=== PATIENT | female | born 1990 | race American Indian/Alaskan Native ===

== ENCOUNTER 2017-08-25 00:12 | Emergency (ER) | payer SELFPAY ==
[2017-08-25 01:47] VITALS: BP 119/88
[2017-08-25] MEDS ORDERED: KEFLEX PO ONE (07:59)
[2017-08-25] MEDS ORDERED: MOTRIN PO ONE (07:59)
[2017-08-25] MEDS ORDERED: BOOSTRIX IM ONE (07:59)
--- NOTE | 2017-08-25 08:00 | Emergency Department Report ---
Abscess Boil HPI - HPI Chief Complaint: Skin/Abscess/Foreign Body Stated Complaint: ABSCESS BEHIND LT EAR Time Seen by Provider: 08/25/17 07:30 Duration: 1 Week Location: Neck Severity: Moderate History: Yes Pain (left posterior neck pain 10/10 and feels sore.), No Fever, No Purulent Drainage, No Numbness, No Foreign Body, No Previous History, No Insect Bite HPI: This is a 26-year-old female here reported that she has a boil to the back of her neck 1 week. She said pain is 10 out of 10 and feels sore. Worse with touch and no alleviating factor. Tetanus vaccine is not up-to-date. Unknown cause. Denies any fever or chills. Denies any nausea or vomiting. Denies any neck pain or stiffness. Denies any headache. No previous incident. She says she try to keep it clean with peroxide. Denies taking any medication for pain. Home Medications: Previous Rx's Medication Instructions Recorded Last Taken Type Cephalexin [Keflex] 500 mg PO Q8HR 10 Days #30 cap 08/25/17 Unknown Rx Ibuprofen [Motrin] 600 mg PO Q8H PRN #15 tablet 08/25/17 Unknown Rx Allergies/Adverse Reactions: Allergies Allergy/AdvReac Type Severity Reaction Status Date / Time Sulfa (Sulfonamide Allergy Itching Verified 08/25/17 03:03 Antibiotics) ED Review of Systems ROS: Stated complaint: ABSCESS BEHIND LT EAR Other details as noted in HPI Constitutional: denies: chills, fever Eyes: eye pain ENT: denies: throat pain Respiratory: denies: cough, shortness of breath, SOB with exertion, SOB at rest , wheezing Cardiovascular: denies: chest pain, palpitations, edema, syncope Gastrointestinal: denies: nausea, vomiting Genitourinary: denies: urgency, dysuria, discharge Musculoskeletal: denies: back pain, arthralgia Skin: other (boil to the left neck posteriorly). 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 No distress. Alert and acting appropriately. This is a 26-year-old female well-nourished well-developed in no acute distress Front/Back of Body, Lg (Color): 1 - Patient with quarter size, round, indurated with minimal fluctuant area to left posterior neck. Tender to palpate with erythema. No drainage noted. An tetanus vaccine is not up-to-date Size: 1 cm Exam: Yes Tenderness (left posterior neck), Yes Fluctuance (minimal fluctuance, mostly indurated), Yes Surrounding Cellulites/Erythema, Yes Normal Neurologic Exam (alert and oriented 3, normal gait, speech is clear, GCS of 15.), Yes Normal Circulation (no clubbing, cyanosis or edema to extremities. +2 pulses to all extremities), No Lymphangitis, No Crepitation, No Heart Murmur (S1, S2. Regular rate and rhythm) Exam: Lungs: Clear to auscultate bilaterally, no rhonchi wheezes or rales. Mouth: Normal mucosa, no pharyngeal erythema. Neck: No C-spine tenderness. Full range of motion except for tenderness localized to abscess site. I & D Note - I & D Note I & D Note: Simple abscess: Under sterile procedure, quarter size round abscess to left posterior neck tenderness with iodine, normal saline. 0.5 mL of 1% lidocaine instilled in the area prior to procedure. #11 blade used to make a small incision to abscess site. Expressed moderate amount of pus from site. Still with some induration. Area cleansed and iodoform pack in place followed by dry sterile dressing. Tetanus vaccine updated and patient knows to return in 3 days for packing removal. She tolerated procedure well. ED Course Vital Signs 08/25/17 08/25/17 01:38 03:07 Temperature 98.4 F 98.4 F Pulse Rate 82 83 Respiratory 18 18 Rate Blood Pressure 119/88 119/88 O2 Sat by Pulse 99 99 Oximetry - Reevaluation(s) Reevaluation #1: 08/25/17 08:35 Patient given Motrin 800 mg by mouth for pain, strict 0.5 mL to update tetanus and Keflex 500 mg for cellulitis of abscess. Pain is controlled and she had no adverse reaction to medication Critical care attestation.: If time is entered above; I have spent that time in minutes in the direct care of this critically ill patient, excluding procedure time. ED Medical Decision Making - Medical Decision Making ED course: The 26-year-old patient here reports that she has both the back of her neck on the left side for one week. She said it is red and sore. Tetanus vaccine is up -to-date. She is here to be evaluated. I saw and examined patient and she was found to have quarter size, indurated, minimal fluctuance, cellulitic area to posterior left neck that is tender to palpate. No drainage noted. Please refer to procedure note for details on incision and drainage of abscess. Patient to return in 3 days to have packing removed. She tolerated procedure well. Pain controlled with Motrin. I discussed diagnosis with patient and she voiced understanding. A/P 1: Cellulitis, left posterior neck-patient started on Keflex 500 mg by mouth 1 given in ER and will discharge home and Keflex. 2: Encounter for incision and drainage of abscess to left posterior neck- abscess drained under sterile procedure please refer to procedure note for detail on procedure. Patient to return in 3 days for removal of packing and she is aware of that. She will be sent home for Motrin for pain. Boostrix 0.5 mL of given in emergency room Patient educated on diagnosis, medication, acute wound care. Patient discharged home in stable condition with stable vital signs, she is afebrile and she says she feels better. She is nontoxic in appearance. Patient to follow-up with her primary care physician in 2-3 days and return to ER in 3 days for removal of packing. I instructed her to return to the ER after she increased increased pain, neck stiffness, fever, increased drainage, nausea and/or vomiting and if she feels worse and she agrees. Discharged home with prescription for Motrin and Keflex - Differential Diagnosis cyst, nodule, cellulitis, simple abscess ED Disposition Clinical Impression: Simple abscess, Encounter for incision and drainage procedure, Cellulitis, neck Disposition: DC-01 TO HOME OR SELFCARE Is pt being admited?: No Does the pt Need Aspirin: No Condition: Stable Instructions: Abscess Incision and Drainage (ED), Cellulitis (ED), Acute Wound Care (ED) Additional Instructions: I instructed her to return to the ER after she increased increased pain, neck stiffness, fever, increased drainage, nausea and/or vomiting and if she feels worse and she agrees. Follow discharge instructions and acute wound care Motrin for pain Take Keflex antibiotic as prescribed Prescriptions: Cephalexin [Keflex] 500 mg PO Q8HR 10 Days #30 cap Ibuprofen [Motrin] 600 mg PO Q8H PRN #15 tablet PRN Reason: Pain Referrals: return to, emergency room and 3 days [Other] - 3-5 Days (For packing removal) PRIMARY CARE, [Primary Care Provider] - 2-3 Days Forms: Work/School Release Form(ED)
== END 2017-08-25 08:52 | disposition home or self-care (01) ==
LOC: ED 00:12
DX: L02.11 Cutaneous abscess of neck (principal); L03.221 Cellulitis of neck; Z88.2 Allergy status to sulfonamides
CPT/HCPCS: 90471; 90715

== ENCOUNTER 2017-08-26 16:36 | Emergency (ER) | payer SELFPAY ==
[2017-08-26 17:32] VITALS: BP 105/73
--- NOTE | 2017-08-26 18:24 | Emergency Department Report ---
ED Recheck HPI - General Chief Complaint: Medical Clearance Stated Complaint: PAIN MEDS GIVEN NOT WORKING Time Seen by Provider: 08/26/17 18:14 Source: patient Mode of arrival: Ambulatory Limitations: No Limitations - History of Present Illness Initial Comments: This is a 26-year-old female nontoxic, well nourished in appearance, no acute signs of distress presents to the ED for pain control. Patient stated that she had a incision and drainage yesterday and was sent home with Motrin but the pain is not relieved. Patient denies any other symptoms. He denies any chest pain, fever, chills, nausea, vomiting, headache or stiff neck. Patient states allergies to sulfa with no significant past medical history. MD Complaint: medication refill request Initial Visit For: abscess Returns Today for: request for prescription Symptoms Since Prior Visit: no new symptoms, improved Associated Symptoms: none. denies: fever, chills, chest pain, shortness of breath, rash, malaise, nasuea, abdominal pain - Related Data Previous Rx's Medication Instructions Recorded Last Taken Type Cephalexin [Keflex] 500 mg PO Q8HR 10 Days #30 cap 08/25/17 Unknown Rx Ibuprofen [Motrin] 600 mg PO Q8H PRN #15 tablet 08/25/17 Unknown Rx Acetaminophen/Codeine [Tylenol 1 tab PO Q6H PRN #15 tab 08/26/17 Unknown Rx /Codeine # 3 tab] Allergies Allergy/AdvReac Type Severity Reaction Status Date / Time Sulfa (Sulfonamide Allergy Itching Verified 08/25/17 03:03 Antibiotics) ED Review of Systems ROS: Stated complaint: PAIN MEDS GIVEN NOT WORKING Other details as noted in HPI Constitutional: denies: chills, fever Eyes: denies: eye pain, eye discharge, vision change ENT: denies: ear pain, throat pain Respiratory: denies: cough, shortness of breath, wheezing Cardiovascular: denies: chest pain, palpitations Endocrine: no symptoms reported Gastrointestinal: denies: abdominal pain, nausea, diarrhea Genitourinary: denies: urgency, dysuria, discharge Musculoskeletal: denies: back pain, joint swelling, arthralgia Skin: denies: rash, lesions Neurological: denies: headache, weakness, paresthesias Psychiatric: denies: anxiety, depression Hematological/Lymphatic: denies: easy bleeding, easy bruising ED Past Medical Hx - Past Medical History Previous Medical History?: Yes 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 , Overactive bladder - Surgical History Past Surgical History?: No - Social History Smoking Status: Never Smoker Substance Use Type: None - Medications Home Medications: Home Medications Medication Instructions Recorded Confirmed Last Taken Type Cephalexin [Keflex] 500 mg PO Q8HR 10 Days #30 cap 08/25/17 Unknown Rx Ibuprofen [Motrin] 600 mg PO Q8H PRN #15 tablet 08/25/17 Unknown Rx Acetaminophen/Codeine [Tylenol 1 tab PO Q6H PRN #15 tab 08/26/17 Unknown Rx /Codeine # 3 tab] ED Physical Exam - General Limitations: No Limitations General appearance: alert, in no apparent distress - Head Head exam: Present: atraumatic, normocephalic - Eye Eye exam: Present: normal appearance - ENT ENT exam: Present: mucous membranes moist - Neck Neck exam: Present: normal inspection - Respiratory Respiratory exam: Present: normal lung sounds bilaterally. Absent: respiratory distress - Cardiovascular Cardiovascular Exam: Present: regular rate, normal rhythm. Absent: systolic murmur, diastolic murmur, rubs, gallop - GI/Abdominal GI/Abdominal exam: Present: soft, normal bowel sounds - Extremities Exam Extremities exam: Present: normal inspection - Back Exam Back exam: Present: normal inspection - Neurological Exam Neurological exam: Present: alert, oriented X3 - Psychiatric Psychiatric exam: Present: normal affect, normal mood - Skin Skin exam: Present: warm, dry, intact, normal color. Absent: rash ED Course Vital Signs 08/26/17 17:27 Temperature 98.7 F Pulse Rate 109 H Respiratory 16 Rate Blood Pressure 105/73 O2 Sat by Pulse 99 Oximetry - Reevaluation(s) Reevaluation #1: 08/26/17 18:23 Patient is speaking in full sentences with no signs of distress noted. Critical care attestation.: If time is entered above; I have spent that time in minutes in the direct care of this critically ill patient, excluding procedure time. ED Disposition Clinical Impression: Medication therapy changed Disposition: DC-01 TO HOME OR SELFCARE Is pt being admited?: No Does the pt Need Aspirin: No Condition: Stable Instructions: Acetaminophen/Codeine (By mouth) Additional Instructions: Follow-up with a primary care doctor in 3-5 days or if symptoms worsen and continue return to emergency room as soon as possible. Continue taking antibiotics as prescribed during previous visit. Do not operate any machinery while taking Tylenol with codeine as this may cause drowsiness. Return tomorrow for your packing removal and reassessment of the abscess. Prescriptions: Acetaminophen/Codeine [Tylenol /Codeine # 3 tab] 1 tab PO Q6H PRN #15 tab PRN Reason: Pain , Severe (7-10) Referrals: PRIMARY CAREMD [Primary Care Provider] - 3-5 Days LORIE LEON MD [Staff Physician] - 3-5 Days [facility] [Outside] - 3-5 Days [facility] [Outside] - 3-5 Days Forms: Work/School Release Form(ED)
== END 2017-08-26 18:30 | disposition home or self-care (01) ==
LOC: ED 16:36
DX: R52 Pain, unspecified (principal); Z76.0 Encounter for issue of repeat prescription; Z88.2 Allergy status to sulfonamides
CPT/HCPCS: 99282

== ENCOUNTER 2017-08-27 11:18 | Emergency (ER) | payer OTHER ==
[2017-08-27 11:43] VITALS: BP 120/84
--- NOTE | 2017-08-27 15:16 | Emergency Department Report ---
ED Recheck HPI - General Chief Complaint: Laceration/Recheck/Suture Stated Complaint: PACKING REMOVED Time Seen by Provider: 08/27/17 14:52 Source: patient Mode of arrival: Ambulatory Limitations: No Limitations - History of Present Illness Initial Comments: This is a 26-year-old -[place] female Presents for packing removal from left neck wound from I&D 2 days ago here in the ER. Patient is currently taking Keflex as prescribed. Patient reports mild drainage. She is changing dressing twice a day. Denies numbness or tingling, chest pain, and new symptoms. MD Complaint: wound re-check -: days(s) (2 days) Initial Visit For: abscess Returns Today for: wound recheck Symptoms Since Prior Visit: no new symptoms Context: planned re-check Associated Symptoms: none Treatments Prior to Arrival: dressings, Given Antibiotics on, Given Pain Meds on - Related Data Previous Rx's Medication Instructions Recorded Last Taken Type Cephalexin [Keflex] 500 mg PO Q8HR 10 Days #30 cap 08/25/17 Unknown Rx Ibuprofen [Motrin] 600 mg PO Q8H PRN #15 tablet 08/25/17 Unknown Rx Acetaminophen/Codeine [Tylenol 1 tab PO Q6H PRN #15 tab 08/26/17 Unknown Rx /Codeine # 3 tab] Allergies Allergy/AdvReac Type Severity Reaction Status Date / Time Sulfa (Sulfonamide Allergy Itching Verified 08/25/17 03:03 Antibiotics) ED Review of Systems ROS: Stated complaint: PACKING REMOVED Other details as noted in HPI Respiratory: denies: cough, shortness of breath, wheezing Cardiovascular: denies: chest pain, palpitations Gastrointestinal: denies: abdominal pain, nausea, diarrhea Skin: lesions (packing to drained abscess on left side of neck). 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 , Overactive bladder - Surgical History Past Surgical History?: No - Social History Smoking Status: Never Smoker Substance Use Type: Alcohol, Prescribed - Medications Home Medications: Home Medications Medication Instructions Recorded Confirmed Last Taken Type Cephalexin [Keflex] 500 mg PO Q8HR 10 Days #30 cap 08/25/17 Unknown Rx Ibuprofen [Motrin] 600 mg PO Q8H PRN #15 tablet 08/25/17 Unknown Rx Acetaminophen/Codeine [Tylenol 1 tab PO Q6H PRN #15 tab 08/26/17 Unknown Rx /Codeine # 3 tab] ED Physical Exam - General Limitations: No Limitations General appearance: alert, in no apparent distress - Neck Neck exam: Present: full ROM. Absent: lymphadenopathy - Cardiovascular Cardiovascular Exam: Present: regular rate, normal rhythm. Absent: systolic murmur, diastolic murmur, rubs, gallop - GI/Abdominal GI/Abdominal exam: Present: soft, normal bowel sounds - Neurological Exam Neurological exam: Present: alert, oriented X3 - Psychiatric Psychiatric exam: Present: normal affect, normal mood - Skin Skin exam: Present: warm, dry, normal color, other (packing to 1 cm wound to left posterior neck, no erythema or cellulitis of surrounding skin). Absent: intact, rash ED Course Vital Signs 08/27/17 11:39 Temperature 98.8 F Pulse Rate 81 Respiratory 18 Rate Blood Pressure 120/84 O2 Sat by Pulse 100 Oximetry ED Recheck MDM - Differential Diagnosis Wound Recheck - Medical Decision Making A/P: Abscess packing removal. Removed packing with forceps, cleaned with NS 2 cc, applied sterile dressing. Patient instructed to f/u with [facility] in 3-5 days for reevaluation of wound. Continue keflex as prescribed for the full course. Critical care attestation.: If time is entered above; I have spent that time in minutes in the direct care of this critically ill patient, excluding procedure time. ED Disposition Clinical Impression: Wound check, abscess, Abscess packing removal Disposition: TO HOME OR SELFCARE Is pt being admited?: No Does the pt Need Aspirin: No Condition: Stable Instructions: Abscess (ED) Additional Instructions: Complete full course of Keflex antibiotics as prescribed. Avoid drinking alcohol while taking medication and have to 24 hours after completion. Change dressing twice a day until wound is completely closed. Follow-up with [facility] in 3-5 days for reevaluation of wound. Referrals: [facility] [Outside] - 3-5 Days [facility] [Outside] - 3-5 Days Time of Disposition: 15:21 Print Language: [email or web address]
== END 2017-08-27 15:38 | disposition home or self-care (01) ==
LOC: ED 11:18
DX: Z48.01 Encounter for change or removal of surgical wound dressing (principal); Z88.2 Allergy status to sulfonamides
CPT/HCPCS: 99282